=== PATIENT | female | born 1965 | race Caucasian/White ===

== ENCOUNTER → 2018-04-15 07:33 | Outpatient (CLI) | payer OTHER, SELFPAY ==
[2018-03-29 08:43] VITALS: BMI 26.9
--- NOTE | 2018-04-15 07:39 | ECHOD_ITS ---
Version 2 Reason For Study: MURMUR Procedure This was a 2D Doppler, Color Flow transthoracic echocardiogram. The exam was of adequate technical quality. Exam performed in department. Left Ventricle Normal LV size. Left ventricular systolic function is normal. The estimated ejection fraction is 60 %. Transmitral doppler flow suggestive of impaired relaxation of left ventricle. No regional wall motion abnormalities noted. Right Ventricle Normal RV size. Normal systolic function. Atria Normal left atrium. Normal right atrium. No doppler evidence for ASD. Mitral Valve There is no mitral annular calcification. Normal mitral valve. Trivial mitral valve insufficiency. Tricuspid Valve Normal tricuspid valve. Mild tricuspid valve insufficiency. Right ventricular systolic pressure estimated to be 17 mmHg. Aortic Valve Trisinus/trileaflet aortic valve. Mild diffuse aortic valve thickening. Moderate focal aortic valve calcification. Mild (1+) aortic valve insufficiency. Pulmonic Valve The pulmonic valve is not well visualized. Mild (1+) pulmonic valve insufficiency. Great Vessels Normal sized aortic root. Pericardium/Pleural No pericardial effusion. MMode/2D Measurements & Calculations LVIDd: 4.4 cm IVSd: 0.87 cm LVOT diam: 2.3 cm LVIDs: 3.0 cm LVPWd: 0.99 cm LVOT area: 4.1 cm2 RVDd: 2.9 cm FS: 31.6 % Ao root diam: 3.5 cm LAV(MOD-bp): 40.3 ml LA A4 area: 14.7 cm2 LAV(MOD-bp) Indexed: 23.5 ml/m2 LAV(MOD-sp2): 41.0 ml LAV(MOD-sp4): 39.5 ml LA dimension(2D): 3.2 cm RA A4 area: 11.7 cm2 Doppler Measurements & Calculations MV E max [place]go: 52.5 cm/sec Lat Peak E' Diego: 5.9 cm/sec Med Peak E' Diego: 7.7 cm/sec MV A max [place]go: 71.7 cm/sec E/E' lat: 9.0 E/E' med: 6.9 MV E/A: 0.73 Ao V2 max: 171.4 cm/sec AI max diego: 344.0 cm/sec LV V1 max: 100.5 cm/sec Ao max P.7 mmHg AI max P.4 mmHg LV V1 max P.0 mmHg Ao V2 mean: 124.7 cm/sec AI dec slope: 227.7 cm/sec2 LV V1 mean P.2 mmHg Ao mean P.7 mmHg AI P1/2t: 442.5 msec LV V1 mean: 68.9 cm/sec Ao V2 VTI: 34.4 cm LV V1 VTI: 21.4 cm SAMUEL(I,D): 2.6 cm2 SAMUEL(V,D): 2.4 cm2 SV(LVOT): 88.0 ml PA V2 max: 86.5 cm/sec TR max diego: 185.3 cm/sec TR max P.7 mmHg Interpretation Summary Left ventricular systolic function is normal. The estimated ejection fraction is 60 %. Trivial mitral valve insufficiency. Mild tricuspid valve insufficiency. Mild (1+) aortic valve insufficiency. Mild (1+) pulmonic valve insufficiency. Right ventricular systolic pressure estimated to be 17 mmHg. Transmitral doppler flow suggestive of impaired relaxation of left ventricle Comment: 2D echocardiographic images in the short axis view of the aortic valve apparatus appear potentially compatible with a tricuspid aortic valve with a fusion/calcified raphe functioning as a bicuspid aortic valve no spectral Doppler findings compatible with hemodynamically significant aortic valve stenosis and color flow and Doppler findings compatible with mild aortic valve insufficiency. Ordering Physician: Tomás^Devan^^^ Referring Physician: Camila Baeza Performed By: Annika Linda, NORY, RVT
== END ==
PROVIDERS: Family Provider Internal Medicine; PCP Internal Medicine; Referring Provider Internal Medicine Cardiovascular Disease; Visit Provider Internal Medicine Cardiovascular Disease
DX: I35.9 Nonrheumatic aortic valve disorder, unspecified (principal)
CPT/HCPCS: 93306

== ENCOUNTER 2018-09-19 11:06 | Emergency (ER) | payer OTHER, SELFPAY ==
[2018-03-29 08:43] VITALS: BMI 26.9
[2018-09-19 11:07] VITALS: BP 191/82; PULSE 76; RESP 16; TEMP 35.9; BMI 26.6
--- NOTE | 2018-09-19 11:40 | RAD_ITS ---
STUDY: X-RAY - LUMBAR SPINE REASON FOR EXAM: Female, 53 years old. Sudden onset of severe back pain TECHNIQUE: 3 view(s) of the lumbar spine were obtained. COMPARISON: None FINDINGS: Normal lumbar lordosis. There is a dextroscoliosis of the lumbar spine. There is grade 2 spondylolisthesis at L5-S1 likely due to L5 spondylolysis. Mild spondylosis and endplate sclerosis at T12-L1 as well as L3-L4. Mild disc space narrowing at L3-L4. There is no demonstrated fracture. The soft tissue structures are unremarkable. RAD/Lumbar Spine 2 or 3 Views IMPRESSION: 1. No compression fracture. 2. Grade 2 spondylolisthesis of L5-S1 likely due to L5 spondylolysis. 3. Mild degenerative disc disease L3-L4. Electronically Signed: Dmitry Mcdermott MD at 12:18 EDT , Service support ,
--- NOTE | 2018-09-19 11:41 | ED.DCSUM_ITS ---
History of Present Illness Chief Complaint: Back Informant: Patient, Family Onset: Yesterday Current Severity: Mild Narrative: Patient indicates about yesterday she put her right leg up to put some skin lotion on her leg when she did so she getting [place] and immediate pain to her right paralumbar back musculature. The pain has persisted, she denies numbness weakness paresthesias no bowel or bladder complaint, she has a history of cervical disc disease but no history of low lumbar back disease or complaints or issues no trauma she is able to walk has but has pain with ambulation she denies any other complaints and there was no direct trauma just rather putting her leg up as above Past Medical History - Allergies and Home Meds Allergies/Adverse Reactions: Allergies No Known Allergies Allergy (Verified 09/19/18 11:09) Primary Care Physician: Camila Baeza MD [Primary Care Provider] - Past Medical History: - - See above in the full chart Surgical History: - - Endometrial ablation Smoking Status: Never smoker - Family History Maternal Family History: Family History (Last Reviewed 03/29/18 @ 08:44 by Karina Maya) Mother Heart disease Hypertension Father Heart disease Diabetes Brother Heart disease Myocardial infarction, Onset Age: 58 Family History: Reports: Heart Disease, - - Her mother has had 2 bypass surgeries and is still alive. There is no history of ovarian or breast cancer on the maternal side of the family. Paternal Family History: Family History (Last Reviewed 03/29/18 @ 08:44 by Karina Maya) Mother Heart disease Hypertension Father Heart disease Diabetes Brother Heart disease Myocardial infarction, Onset Age: 58 Family History: Reports: Diabetes - In her father Sibling Family History: Family History (Last Reviewed 03/29/18 @ 08:44 by Karina Maya) Mother Heart disease Hypertension Father Heart disease Diabetes Brother Heart disease Myocardial infarction, Onset Age: 58 Family History: Reports: - - Her brother in his 50s of a massive myocardial infarction Review of Systems General: Denies: Chills, Fever, Sweats Eyes: Denies: Visual changes - bilaterally, Diplopia ENT: Denies: Rhinorrhea, Sore throat Cardiovascular: Denies: Chest pain, Palpitations Respiratory: Denies: Dyspnea, Cough, Dyspnea on exertion Gastrointestinal: Denies: Abdominal pain, Nausea, Vomiting, Diarrhea, Melena, Hematochezia Genitourinary: Denies: Dysuria, Hematuria, Frequency Musculoskeletal: Reports: Back pain. Denies: Extremity Pain Skin: Denies: Rash, Wounds Neurological: Denies: Headache, Weakness, Numbness Physical Exam Vital Signs/Narrative: Vital Signs Temp Pulse Resp BP 09/19/18 11:07 96.6 F L 76 16 191/82 H General: Well nourished, Well developed, No Acute Distress Head: Normocephalic, Atraumatic Eyes: Perrl, EOMI ENT: Moist mucous membranes, No rhinorrhea Neck: Supple, Nontender Cardiovascular: Regular rate, Regular rhythm, No murmurs Respiratory: No distress, CTA bilaterally, Chest nontender Abdomen: Soft, Nontender, Nondistended, Normal bowel sounds Back: Nontender, Normal Inspection, - - He has some discomfort to the right paralumbar back musculature. The T-spine lumbar spine are not tender, her full range of motion of lower extremities dorsi and plantarflexion is normal, she walked in the emergency department under her own gait, she again denies any other complaints no urinary symptoms no abdominal pain Extremities: Nontender, No edema Skin: Normal color, No rash Neurological: Alert, Oriented x3, Cranial nerves II-XII grossly intact, Normal Strength, Normal Sensation Psychological: Normal affect, Normal Mood Diagnostic/Tx/Re-eval - Medical Decision Making Given all of the above lumbar spine x-ray morphine subcu Zofran Lumbar spine films are generally unremarkable please see that report, explained all the above to her and her this time she will be treated with Naprosyn and Flexeril [place] as a rescue medicine #7 she will follow with her family physician for further management otherwise explained the exact etiology of this is unclear and it could be something that requires further management and possible referral to spine surgery she will return for any signs of cauda equina or change in symptoms Home stable Final impression Acute right paralumbar back pain ED Disposition - Plan for ED Patient: Diagnosis: Lumbar back pain Instructions: BACK SPASM, No Trauma Prescriptions: cycloBENZAPRine HCl [Flexeril] 10 mg PO TID PRN #10 tab PRN Reason: Muscle Spasm Prescription Printed Naproxen [Naprosyn] 500 mg PO BID PRN #20 tab Prescription Printed Hydrocodone Bitart/Apap 5-325 [[place] 5MG-325MG] 1 tab PO Q4H PRN PRN 2 Days #10 tab PRN Reason: Pain Prescription Printed Referrals: Camila Baeza MD [Primary Care Provider] -
[2018-09-19] MEDS: morphine 8 MG/ML Syringe SC (12:10)
[2018-09-19] MEDS: Ondansetron ODT 4 MG Tablet PO (12:10)
[2018-09-19 12:51] VITALS: BP 167/87; PULSE 76; RESP 18; O2SAT 95
== END 2018-09-19 12:52 | disposition home or self-care (01) ==
LOC: ED 11:49
PROVIDERS: Emergency Provider Emergency Medicine; Family Provider Internal Medicine; PCP Internal Medicine
DX: M54.5 Low back pain (principal)
CPT/HCPCS: 72100; 96372; 99283

== ENCOUNTER → 2019-05-10 | Outpatient (CLI) | payer OTHER, SELFPAY ==
[2019-04-22 08:56] VITALS: BMI 28.2
--- NOTE | 2019-05-10 14:50 | ECHOD_ITS ---
Reason For Study: MURMUR Procedure This was a 2D Doppler, Color Flow transthoracic echocardiogram. The exam was of adequate technical quality. Exam performed in department. Left Ventricle Normal LV size. Left ventricular systolic function is normal. The estimated ejection fraction is 60 %. Diastolic function is indeterminate. No regional wall motion abnormalities noted. Right Ventricle Normal RV size. Normal systolic function. Atria Normal left atrium. Normal right atrium. No doppler evidence for ASD. Mitral Valve There is no mitral annular calcification. Normal mitral valve. Trivial mitral valve insufficiency. Tricuspid Valve Normal tricuspid valve. Mild tricuspid valve insufficiency. Right ventricular systolic pressure estimated to be 22 mmHg. Aortic Valve 2D echocardiographic images in the short axis view of the aortic valve apparatus appear potentially compatible with a tricuspid aortic valve with a fusion/calcified raphe functioning as a bicuspid aortic valve no spectral Doppler findings compatible with hemodynamically significant aortic valve stenosis and color flow and Doppler findings compatible with mild aortic valve insufficiency. Mild (1+) aortic valve insufficiency. Pulmonic Valve The pulmonic valve is not well visualized. Trivial pulmonic valve insufficiency. Great Vessels Borderline enlarged aortic root. Pericardium/Pleural No pericardial effusion. MMode/2D Measurements & Calculations LVIDd: 3.9 cm IVSd: 1.0 cm Ao root diam: 3.9 cm LVIDs: 2.7 cm LVPWd: 1.1 cm RVDd: 3.2 cm FS: 31.1 % LAV(MOD-bp): 37.0 ml LVAd ap4: 31.0 cm2 SV(MOD-sp4): 62.2 ml LAV(MOD-bp) Indexed: 21.0 ml/m2 EDV(MOD-sp4): 109.3 ml LAV(MOD-sp2): 44.4 ml EDV(sp4-el): 113.3 ml LAV(MOD-sp4): 30.6 ml LVAs ap4: 19.2 cm2 ESV(MOD-sp4): 47.1 ml ESV(sp4-el): 47.4 ml EF(MOD-sp4): 56.9 % EF(sp4-el): 58.2 % SV(sp4-el): 65.9 ml LA A4 area: 13.4 cm2 LA dimension(2D): 3.2 cm RA A4 area: 13.3 cm2 Time Measurements MV dec time: 0.32 sec Doppler Measurements & Calculations MV E max [place]: 65.7 cm/sec Lat Peak E' Diego: 6.3 cm/sec Med Peak E' Diego: 5.0 cm/sec MV A max [place]: 82.0 cm/sec E/E' lat: 10.5 E/E' med: 13.2 MV E/A: 0.80 Ao V2 max: 185.2 cm/sec AI max [place]: 419.0 cm/sec LV V1 max: 127.6 cm/sec Ao max P.7 mmHg AI max P.2 mmHg LV V1 max P.5 mmHg AI dec slope: 241.2 cm/sec2 AI P1/2t: 508.7 msec PA V2 max: 70.4 cm/sec TR max [place]go: 217.1 cm/sec TR max P.9 mmHg Interpretation Summary Left ventricular systolic function is normal. The estimated ejection fraction is 60 %. Trivial mitral valve insufficiency. Mild tricuspid valve insufficiency. 2D echocardiographic images in the short axis view of the aortic valve apparatus appear potentially compatible with a tricuspid aortic valve with a fusion/calcified raphe functioning as a bicuspid aortic valve no spectral Doppler findings compatible with hemodynamically significant aortic valve stenosis and color flow and Doppler findings compatible with mild aortic valve insufficiency Trivial pulmonic valve insufficiency. Borderline enlarged aortic root. Right ventricular systolic pressure estimated to be 22 mmHg. Diastolic function is indeterminate. Ordering Physician: Devan England Referring Physician: DANIELA ULLOA Performed By: Marycruz Cross, RDCS, RVT
== END | disposition home or self-care (01) ==
LOC: CVS 14:50
PROVIDERS: PCP Internal Medicine; Referring Provider Internal Medicine Cardiovascular Disease; Visit Provider Internal Medicine Cardiovascular Disease
DX: I35.9 Nonrheumatic aortic valve disorder, unspecified (principal); R01.1 Cardiac murmur, unspecified
CPT/HCPCS: 93306

== ENCOUNTER → 2021-07-12 | Outpatient (CLI) | payer OTHER, SELFPAY ==
--- NOTE | 2021-07-12 10:46 | ECHOD_ITS ---
Reason For Study: Murmur Procedure This was a 2D Doppler, Color Flow transthoracic echocardiogram. The study was technically difficult. Exam performed in department. Left Ventricle Normal LV size. Left ventricular systolic function is normal. The estimated ejection fraction is 65 %. No evidence for diastolic dysfunction. Right Ventricle Normal RV size. Normal systolic function. Atria Normal left atrium. Normal right atrium. No doppler evidence for ASD. Mitral Valve There is no mitral annular calcification. Normal mitral valve. Trivial mitral valve insufficiency. Tricuspid Valve Normal tricuspid valve. Trivial tricuspid valve insufficiency. Right ventricular systolic pressure estimated to be 25 mmHg. Aortic Valve 2D echocardiographic images in the short axis view of the aortic valve apparatus appear potentially compatible with a tricuspid aortic valve with a fusion/calcified raphe functioning as a bicuspid aortic valve no spectral Doppler findings compatible with hemodynamically significant aortic valve stenosis and color flow and Doppler findings compatible with mild aortic valve insufficiency. Pulmonic Valve The pulmonic valve is not well visualized. Trivial pulmonic valve insufficiency. Great Vessels Borderline enlarged aortic root. Pericardium/Pleural No pericardial effusion. MMode/2D Measurements & Calculations LVIDd: 4.4 cm IVSd: 1.2 cm LVOT diam: 2.1 cm LVIDs: 2.8 cm LVPWd: 1.3 cm LVOT area: 3.6 cm2 RVDd: 3.0 cm FS: 37.3 % Ao root diam: 3.7 cm LAV(MOD-bp): 36.1 ml LA A4 area: 15.7 cm2 LA dimension: 3.0 cm LAV(MOD-bp) Indexed: 20.5 ml/m2 LAV(MOD-sp2): 31.0 ml LAV(MOD-sp4): 40.4 ml RA A4 area: 13.9 cm2 Time Measurements MV dec time: 0.31 sec Doppler Measurements & Calculations MV E max [place]: 70.9 cm/sec Lat Peak E' Diego: 8.3 cm/sec Med Peak E' [place]: 8.7 cm/sec MV A max [place]: 63.6 cm/sec E/E' lat: 8.6 E/E' med: 8.1 MV E/A: 1.1 Ao V2 max: 175.0 cm/sec AI max [place]go: 385.0 cm/sec LV V1 max: 126.5 cm/sec Ao max P.2 mmHg AI max P.3 mmHg LV V1 max P.4 mmHg Ao V2 mean: 112.9 cm/sec AI dec slope: 146.5 cm/sec2 LV V1 mean P.0 mmHg Ao mean P.8 mmHg AI P1/2t: 770.0 msec LV V1 mean: 80.6 cm/sec Ao V2 VTI: 37.7 cm LV V1 VTI: 29.5 cm SAMUEL(I,D): 2.8 cm2 SAMUEL(V,D): 2.6 cm2 SV(LVOT): 106.9 ml PA V2 max: 55.6 cm/sec TR max [place]go: 233.4 cm/sec TR max P.8 mmHg ECHO/Echo Complete Interpretation Summary The study was technically difficult. Left ventricular systolic function is normal. The estimated ejection fraction is 65 %. Trivial mitral valve insufficiency. Trivial tricuspid valve insufficiency. 2D echocardiographic images in the short axis view of the aortic valve apparatu s appear potentially compatible with a tricuspid aortic valve with a fusion/calcified raphe function ing as a bicuspid aortic valve no spectral Doppler findings compatible with hemodynamically signi ficant aortic valve stenosis and color flow and Doppler findings compatible with mild aortic valve insufficiency Trivial pulmonic valve insufficiency. Borderline enlarged aortic root. Right ventricular systolic pressure estimated to be 25 mmHg. No evidence for diastolic dysfunction. Ordering Physician: Karina Melendez Referring Physician: Camila Baeza M.D. Performed By: Chas Benton RCS
== END | disposition home or self-care (01) ==
LOC: CVS 10:45
PROVIDERS: PCP Internal Medicine; Referring Provider Physician Assistant Medical; Visit Provider Physician Assistant Medical
DX: I35.1 Nonrheumatic aortic (valve) insufficiency (principal); R01.1 Cardiac murmur, unspecified
CPT/HCPCS: 93306

== ENCOUNTER 2021-10-29 09:16 | Emergency (ER) | payer OTHER, SELFPAY ==
[2021-10-29 09:17] VITALS: BP 191/127; PULSE 95; RESP 17; TEMP 35.9; O2SAT 99; BMI 29.4
--- NOTE | 2021-10-29 09:53 | CT_ITS ---
INDICATION: Abdominal Pain X 1 WEEK EXAMINATION: CT ABDOMEN AND PELVIS WITH CONTRAST - CT Abdomen And Pelvis W/ Contrast Injection TECHNIQUE: Helically acquired images were obtained of the abdomen and pelvis following IV contrast. A radiation dose optimization technique was used for this scan. IV Contrast dosage and agent: 100 mL of ISOVUE-300 Oral contrast: None. COMPARISON: 08/03/2015.. FINDINGS: LOWER CHEST: Lung bases are clear. No cardiomegaly or pericardial effusion. LIVER: Homogeneous. No focal mass. GALLBLADDER AND BILIARY TREE: No calcified gallstones. No gallbladder distension or wall edema. No intra- or extrahepatic biliary ductal dilation. PANCREAS: No focal cystic or solid mass. SPLEEN: Normal size without focal cystic or solid mass. ADRENAL GLANDS: No nodules. KIDNEYS AND URETERS: Normal renal size and position. No hydronephrosis. PERITONEUM: No ascites or free air. No other fluid collection. BOWEL: Extensive bowel wall thickening visualized in the distal rectosigmoid with extensive stranding of the adjacent fat planes is seen, best visualized on axial series 2 image 85, coronal series 601 image 57 and sagittal series 602 image 91 no evidence of free air in the peritoneal cavity, no evidence of localized abscess is visualized. Findings consistent with acute diverticulitis Thickening of the proximal sigmoid colon and the descending colon is visualized with scattered diverticular disease but no evidence of other areas of for acute diverticulitis is visualized. Distended loops of small bowel visualized in the right lower quadrant and in the midabdomen, the most prominent visualized in the proximity of the diverticulitis of the sigmoid colon, thus this could represent ileus secondary to irritation/inflammatory changes in the peritoneum at this location. Type I hiatus hernia is seen. LYMPH NODES: Extensive scattered mesenteric and retroperitoneal lymph nodes are seen. VESSELS: Aorta is non-dilated. URINARY BLADDER: Unremarkable. REPRODUCTIVE ORGANS: Anteverted uterus demonstrates low attenuation within the myometrium. Stranding of the adjacent fat planes is seen. Scattered adjacent pelvic lymph nodes seen. ABDOMINAL WALL: No discrete abdominal or pelvic wall hernia. BONES: No lytic or blastic abnormality. CT/Abdomen/Pelvis W IV Cont ONLY IMPRESSION: Acute diverticulitis of the sigmoid colon. Distended loops of small bowel in the right lower quadrant and in the midabdomen with extensive mesenteric lymphadenopathy, this could be secondary to the acute diverticulitis. Electronically Signed: Rodolfo Eugene MD at 11:49 EDT ,
--- NOTE | 2021-10-29 09:54 | EDS_ITS ---
HPI HPI - GI History of Present Illness Chief Complaint: Abd Pain Narrative Narrative: Patient with past medical history of anxiety and depression, hypertension, presents with diarrhea and suprapubic to right lower quadrant abdominal pain for the last week. She states her symptoms began on Thursday of last week when she picked up her grandson. She thought she pulled a muscle in her lower abdomen in the suprapubic area. Seem to get worse the following day, then she developed diarrhea over the weekend. She has had multiple episodes of mucousy, watery stool. She denies any fevers and had transient nausea and chills. No vomiting. She denies any dysuria or hematuria. At times it is a crampy pain, and other times it can be sharp and stabbing. It is mainly in the right lower quadrant currently. She is had 3-4 episodes of diarrhea in the last 24 hours. No prior abdominal surgeries. She complains of anxiety regarding this. She has been able to take her medications. [facility] Medical History Anxiety and depression Chest pain DDD (degenerative disc disease) VENTURA (dyspnea on exertion) Essential hypertension Family history of heart disease Nonrheumatic aortic (valve) insufficiency Nonrheumatic aortic (valve) insufficiency Nonrheumatic aortic valve disorder Umu-menopausal Home Medications multivitamin 1 tab PO QDAY 03/24/17 [History Last Taken Unknown] hydrochlorothiazide 25 mg tablet 25 mg PO DAILY 03/29/18 [History Last Taken Unknown] atenolol 25 mg tablet 25 mg PO DAILY 06/27/21 [History Last Taken Unknown] ciprofloxacin HCl 500 mg tablet (Cipro) 500 mg PO BID #20 tabs 10/29/21 [Rx Last Taken Unknown] hydrocodone-acetaminophen 5-325mg 5mg-325mg 1 tab PO Q6H PRN pain 3 days #10 tabs 10/29/21 [Rx Last Taken Unknown] metronidazole 500 mg tablet 500 mg PO TID #30 tabs 10/29/21 [Rx Last Taken Unknown] Allergy/AdvReac Type Severity Reaction Status Date / Time No Known Allergies Allergy Verified 10/29/21 09:17 Family History Mother Heart disease Hypertension Father Heart disease Diabetes Brother Heart disease Myocardial infarction, Onset Age: 58 Surgical History Hx of foot surgery uterine ablation Social History Smoking Status: Never smoker alcohol intake: current substance use type: does not use ROS ROS ED ROS Narrative Constitutional: No fever, no chills. HEENT: No sore throat. No neck pain. No loss of vision. No rhinorrhea. Cardiovascular: No chest pain. No palpitations. No pedal edema. Respiratory: No cough, no shortness of breath. Abdominal: Suprapubic to right lower quadrant abdominal pain. Transient nausea. No vomiting. Positive diarrhea, nonbloody Genitourinary: No dysuria. No hematuria. Musculoskeletal: No myalgias. No arthralgias. Neurologic: No headaches. No dizziness. Minimal lightheadedness when standing quickly. Skin: No rash. No change in color. Psychiatric: No depression. Positive anxiety. EXAM Physical Exam Narrative Exam Narrative: Afebrile. Vital signs noted. HEENT: Normocephalic. Atraumatic. PERRL, EOMI. Neck soft and supple. No point tenderness or step off. Cardiovascular: Regular rate and rhythm. No murmurs, rubs, or gallops appreciated. Respiratory: No tachypnea. Lungs clear to auscultation bilaterally. Gastrointestinal: Abdomen soft, tender to palpation right lower quadrant, with normoactive bowel sounds. No rebound or guarding. Neurological: Awake. Alert. Nonfocal, nonlateralizing. Skin: No rash. Normal color. No pallor. Musculoskeletal: No pedal edema. Full range of motion extremities. Const Vital Signs: 10/29/21 09:17 10/29/21 11:00 Temperature 96.7 F L Temperature Source Temporal Pulse Rate 95 74 Respiratory Rate 17 16 Blood Pressure 191/127 H 153/75 H Blood Pressure Mean 148 101 Pulse Ox 99 97 Oxygen Delivery Method Room Air Room Air MDM MDM MDM Narrative Medical decision making narrative: Comprehensive work-up was pursued. She was administered morphine for analgesia and bolus normal saline. She does have elevated blood pressure which I do think may be secondary to anxiety. Concern is for colitis/diverticulitis versus appendicitis. CBC shows normal white count at 9.4, hemoglobin stable at 14.4, platelet count 270. Her electrolyte panel shows potassium low at 3.0 which was replaced orally with 40 mill equivalents. She has normal BUN and normal creatinine. LFTs are slightly elevated at 55 and 66 with her AST and ALT respectively. Lipase normal at 217. Urinalysis shows no evidence of infection. CT of the abdomen and pelvis with IV contrast does show acute diverticulitis mainly of the rectosigmoid colon and partially of the descending colon. Upon repeat examination she feels improved after morphine. Her abdomen remains soft. As she is afebrile and does not have an elevated white count, I do feel that she could try outpatient therapy. She was warned of the risk of abscess development and perforation and acknowledges an understanding. She will follow- up with her primary care physician in the next 2 to 3 days. She was given a note to be off work. She was given prescriptions for Cipro and Flagyl and given her first doses here in the emergency department. I also wrote her prescription for [place]. She was told of the risk of constipation, drowsiness, nausea and vomiting, and addiction and acknowledges an understanding. Return instructions to the emergency department were reviewed. Disposition is discharged home in stable condition. Lab Data Attestation: I reviewed the patient's lab results. Labs: Laboratory Results - last 24 hr 10/29/21 10/29/21 10/29/21 10:05 10:25 10:25 WBC 9.4 RBC 4.40 Hgb 14.4 Hct 41.4 MCV 94.1 MCH 32.7 H MCHC 34.8 RDW Std Deviation 44.2 H RDW Coeff of Bright 12.9 Plt Count 270 MPV 10.2 Immature Gran % (Auto) 0.600 Neut % (Auto) 77.5 H Lymph % (Auto) 15.2 L Lewis % (Auto) 4.9 Eos % (Auto) 1.3 Baso % (Auto) 0.5 Absolute Neuts (auto) 7.3 Absolute Lymphs (auto) 1.43 Nucleated RBC % 0 Sodium 137 Potassium 3.0 L Chloride 102 Carbon Dioxide 25.0 Anion Gap 10 BUN 16 Creatinine 0.93 Estim Creat Clear Calc 55.21 Est GFR (MDRD) Af Amer 80 Est GFR (MDRD) Non-Af 66 BUN/Creatinine Ratio 17.2 Glucose 142 H Calcium 9.5 Total Bilirubin 0.60 AST 55 H ALT 66 H Alkaline Phosphatase 242 H Total Protein 7.4 Albumin 3.1 L Globulin 4.3 H Albumin/Globulin Ratio 0.7 L Lipase 217 Urine Color Yellow Urine Clarity Sl. Cloudy Urine pH 6.5 Ur Specific [place] 1.010 Urine Protein 30 H Urine Glucose (UA) Normal Urine Ketones Negative Urine Occult Blood 10 H Urine Nitrite Negative Urine Bilirubin Negative Urine Urobilinogen 1 H Ur Leukocyte Esterase 25 H Urine RBC 0 SEEN Urine WBC 0-5 SEEN Ur Squamous Epith Cells 0-5 SEEN Urine Bacteria 0 SEEN Urine Mucus 0 SEEN Radiography Diagnostic Testing: Clinical Impression(s) from Imaging Studies Abdomen/Pelvis CT 10/29/21 09:53 IMPRESSION: Acute diverticulitis of the sigmoid colon. Distended loops of small bowel in the right lower quadrant and in the midabdomen with extensive mesenteric lymphadenopathy, this could be secondary to the acute diverticulitis. Electronically Signed: Rodolfo Eugene MD at 11:49 EDT Reading Location ID and State: [facility] / [place] Tel , Service support , Discharge Plan Triage Chief Complaint: Abd Pain ED Provider: Luis Villanueva Dx/Rx/DC Orders Clinical Impression: Anxiety and depression, Diverticulitis, Hypokalemia Instructions: ED Diverticulitis, ED Hypokalemia Prescriptions: New ciprofloxacin HCl [Cipro] 500 mg tablet 500 mg PO BID Qty: 20 0RF metronidazole 500 mg tablet 500 mg PO TID Qty: 30 0RF hydrocodone-acetaminophen 5-325 mg tablet 1 tab PO Q6H PRN (Reason: pain) 3 Days Qty: 10 0RF No Action multivitamin tablet 1 tab PO QDAY hydrochlorothiazide 25 mg tablet 25 mg PO DAILY atenolol 25 mg tablet 25 mg PO DAILY Stand Alone Forms: ED Work / School Excuse Primary Care Provider: Camila Baeza Referrals: Camila Baeza MD [Primary Care Provider] - 10/31/21 Disposition Disposition: Home, Self Care
[2021-10-29 10:15] LABS: Bacteria 0 SEEN /hpf (None Seen); Mucous, Urine 0 SEEN /hpf (<or=2+); Red Blood Cells-Urine 0 SEEN /hpf (0-5)
[2021-10-29 10:19] LABS: Color, Urine Yellow (Yellow); Glucose, Dipstick Normal (Normal); Ketone-Dipstick Negative (Negative); Leukocyte Esterase-Dipstick 25 /ul (Negative); Nitrite-Dipstick Negative (Negative); Occult Blood-Urine 10 /ul (Negative); Protein-Dipstick 30 mg/dl (Negative); Urine Bilirubin Dipstick Negative (Negative); Urine Clarity Sl. Cloudy (Clear); Urine Urobilinogen 1 mg/dl (Normal); Urine pH 6.5 (5.0 - 8.0)
[2021-10-29 10:29] LABS: Squamous Epithelial Cells - UA 0-5 SEEN /hpf (5-10); White Blood Cells 0-5 SEEN /hpf (0-5)
[2021-10-29 10:30] LABS: Absolute Lymphocyte Count 1.43 X10^3/uL (0.83-4.51); Absolute Neutrophil Count 7.3 X10^3/uL (2.0-7.7); Basophil# 0.05 X10^3/uL; Basophil% 0.5 % (0-1); Eosinophil# 0.12 X10^3/uL; Eosinophils% 1.3 % (0-5); Hematocrit 41.4 % (37-47); Hemoglobin 14.4 g/dL (12.0-15.0); Lymphocyte # 1.43 X10^3/ul (0.83-4.51); Lymphocyte % 15.2 % (19-41); Mean Corp Hgb Conc 34.8 g/dL (32-36); Mean Corpuscular Hgb 32.7 pg (27.0-32.0); Mean Corpuscular Volume 94.1 fL (81-99); Mean Platelet Vol. 10.2 fl (6.2-12.0); Monocyte# 0.46 X10^3/uL; Monocyte% 4.9 % (0-10); NRBC Flagged by Analyzer 0 % (0-5); Neutrophil # 7.27 X10^3/uL (2.7-7.7); Neutrophil % 77.5 % (47-70); Platelet Count 270 K/mm3 (150-450); RBC Distribution Width CV 12.9 % (11.6-14.6); RBC Distribution Width SD 44.2 fl (35.1-43.9); White Blood Count 9.4 K/mm3 (4.4-11.0)
[2021-10-29 10:49] LABS: ALB/GLOB Ratio 0.7 RATIO (0.9-2.4); AST(SGOT) 55 U/L (15-37); Alanine Aminotransfer ALT/SGPT 66 U/L (13-56); Albumin, Serum 3.1 g/dL (3.2-5.0); Alkaline Phosphatase 242 U/L (45-117); BUN 16 mg/dL (7-18); BUN/Creat Ratio 17.2 RATIO (10-20); Calcium,Total 9.5 mg/dL (8.5-10.1); Chloride 102 mmol/L (98-107); Creatinine, Serum 0.93 mg/dL (0.55-1.02); EST Glomerular Filtration Rate 66 mL/min (>60); Est Glom Filt Rate - Afr Amer 80 mL/min (>60); Estimated Creatinine Clearance 55.21 ml/min; Globulin 4.3 g/dL (2.2-4.2); Glucose 142 mg/dL (74-106); Lipase 217 U/L (73-393); Protein, Total 7.4 g/dL (6.4-8.2); Sodium Level 137 mmol/L (136-145)
[2021-10-29 10:50] LABS: Anion Gap 10 (5-15)
[2021-10-29] MEDS: 0.9% Normal Saline 1,000 ML 1000 ML IV (10:51)
[2021-10-29] MEDS: Morphine 4 MG/ML Syringe IV (10:54)
[2021-10-29 11:00] VITALS: BP 153/75; PULSE 74; RESP 16; O2SAT 97
[2021-10-29] MEDS: Potassium Chloride Oral Tablet 20 MEQ 40 MEQ PO (12:16)
[2021-10-29] MEDS: metroNIDAZOLE 500 MG Tablet PO (12:52)
[2021-10-29] MEDS: Ciprofloxacin 500 MG Tablet PO (12:52)
== END 2021-10-29 13:28 | disposition home or self-care (01) ==
PROVIDERS: Emergency Provider Emergency Medicine; PCP Internal Medicine; Visit Provider Emergency Medicine
DX: K57.32 Diverticulitis of large intestine without perforation or abscess without bleeding (principal); F32.A Depression, unspecified; R10.31 Right lower quadrant pain; I10 Essential (primary) hypertension; F41.9 Anxiety disorder, unspecified; E87.6 Hypokalemia; Z79.899 Other long term (current) drug therapy
CPT/HCPCS: 74177; 80053; 81001; 83690; 85025; 96361; 96374; 99285; J7030; Q9967; A4216

== ENCOUNTER → 2022-01-31 | Outpatient (CLI) | payer OTHER, SELFPAY ==
--- NOTE | 2022-01-31 13:48 | CT_ITS ---
STUDY: CT ABDOMEN AND PELVIS WITH CONTRAST REASON FOR EXAM: Female, 56 years old. Diverticulitis RADIATION DOSAGE (If Supplied By Facility): CTDIvol = ( 15.92 ) mGy, DLP = ( 921.65 ) mGycm TECHNIQUE: Transaxial images were obtained from the dome of the diaphragm to the symphysis pubis without oral contrast. IV 100mL Isovue-300 was administered. Sagittal and coronal images were reconstructed. Individualized dose optimization techniques were used for this CT. COMPARISON: Comparison is made with prior study dated 10/29/2021. FINDINGS: The visualized lung bases are unremarkable. The visualized portions of the heart are within normal limits. There is decreased attenuation of the liver consistent with steatosis. Normal gallbladder and extrahepatic biliary system. Normal spleen. Normal pancreas. Normal bilateral adrenal glands. Normal right kidney. Stable small left renal cyst. Normal visualized stomach. Normal small intestine. Large amount of fecal material is seen in the colon. Scattered sigmoid diverticula with no evidence of diverticulitis at this time. The appendix is visualized and appears normal. Normal abdominal aorta. Normal inferior vena cava. Normal retroperitoneum. Normal urinary bladder. Normal abdominal wall. 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 CT/Abdomen/Pelvis WITH Contrast IMPRESSION: Sigmoid diverticulosis without evidence of diverticulitis. Electronically Signed: Brian Rendon MD at 14:41 EST ,
[2022-01-31 14:21] LABS: CREATININE FINGERSTICK < 0.9 mg/dL (0.55-1.02); EGFR FINGERSTICK > 60.0000 mL/min (>60)
== END | disposition home or self-care (01) ==
LOC: CT 13:45
PROVIDERS: PCP Internal Medicine; Referring Provider Internal Medicine Gastroenterology; Visit Provider Internal Medicine Gastroenterology
DX: K57.92 Diverticulitis of intestine, part unspecified, without perforation or abscess without bleeding (principal)
CPT/HCPCS: 74177; Q9967

== ENCOUNTER 2022-03-11 12:38 | Day surgery (SDC) | payer OTHER, SELFPAY ==
[2022-03-11] VITALS (8 sets, daily range): BP systolic 115–145; BP diastolic 70–87; PULSE 63–84; RESP 16–18; TEMP 36.1–36.6; O2SAT 96–100; BMI 28.4
[2022-03-11] MEDS: Lactated Ringers 1,000 ML 15 ML IV (12:55)
--- NOTE | 2022-03-11 13:45 | COLBX_PTH ---
PATIENT: CARRIE OGLESBY LOC: EN U#:[id number] AGE/SX: 56/F ROOM: RE03/11/[address]: Dr. Eleno Bedolla DO : 1965 BED: DIS: 03/11/2022 SPEC #: [id number] RECD: 03/11/22 16:18 STATUS: RUY MY #: [id number] ELIF: 03/11/22 13:[address]: Eleno Bedolla DEPT: SURGICAL PATHOLOGY RECD BY: Jenni Galan ENTERED: 03/12/22 08:14 SP TYPE: COLON BX OT DR: Dr. Camila Baeza MD Tissues: A - Sigmoid colon biopsy B - Sigmoid colon biopsy C - Sigmoid colon biopsy Procedures: Surgery Specimen Level IV HEADER OPERATION: Colonoscopy (MAC), biopsy, polypectomy PRE-OP DIAGNOSIS: Diverticulitis TISSUE SUBMITTED: A ? Sigmoid colon biopsy, B ? Sigmoid polyp biopsy, C ? Rectosigmoid polyp MICROSCOPIC DIAGNOSIS A. Sigmoid colon, biopsy: No pathologic change. B. Sigmoid colon polyp, biopsy: Hyperplastic polyp. C. Rectosigmoid colon polyp, biopsy: Hyperplastic polyp. AM:henrique 03/13/2022 MICROSCOPIC DESCRIPTION Slides are reviewed. GROSS DESCRIPTION A - Received in fixative is one container labeled with the patient's name and designated sigmoid biopsy. The specimen consists of multiple irregular fragments of light la soft tissue that in aggregate measure 1 x 0.3 x 0.1 cm. The specimen is totally submitted in one cassette. B - Received in fixative is one container labeled with the patient's name and designated sigmoid polyp biopsy. The specimen consists of one irregular fragment of light la soft tissue that measures 0.3 x 0.3 x 0.1 cm. The specimen is totally submitted in one cassette. C - Received in fixative is one container labeled with the patient's name and designated rectosigmoid polyp. The specimen consists of a pink-red polyp measuring 1 x 0.8 x 0.5 cm. The presumed base is inked. The polyp is bisected and submitted entirely in one cassette. / RANJAN:henrique 03/12/2022 TC:3 CPT: 31919 x3
--- NOTE | 2022-03-11 14:15 | PCM.HP.BLA ---
History and Physical Date of Admission: 03/11/22 CARRIE OGLESBY, is a 56 F who presents to the office today for Initial consult. Carrie established with this clinic 01.23.22 with referral from PCP following [facility] ED presentation 10.29.21 where she presented with mucousy/watery diarrhea for multiple days with abdominal pain/cramping; typically in the RLQ. Biochemical workup and imaging performed and was discharged with Cipro and Flagyl and orders to f/u with PCP. PMH anxiety/depression; HTN; aortic valve insufficiency. Biochemical workup 10.29.21 CBC, CMP without pertinent abnormalities. LFT elevated AST 55/ALT 66/ Alk Phos 242; Albumin L3.1 CT abd/pel 10.29.21 with extensive bowel wall thickening in distal RS with extensive stranding of adjacent fat planes consistent with acute diverticulitis; thickening of proximal sigmoid and descending colon with diverticular disease; distended small bowel loops RLQ and mid abdomen, possible ileus secondary to irritation/inflammation; hiatal hernia Since being seen in the ED and finishing her antibiotics she has been doing fine. This is the first time she has ever had symptoms like this. BM typically run as normal with 1-2 BM a day without difficulty. ROS Const Constitutional: No fatigue, malaise, night sweats, weight change, sleep problems, abnormal sleep pattern or change in appetite ENT ENT: No difficulty swallowing, hoarseness or sore throat Cardio Cardiology: No chest pain at rest Gastro GI: No abdominal pain, belching, bloating, change in bowel habits, change in stool character, coffee ground emesis, constipation, cramping, diarrhea, heartburn, difficulty swallowing, feeling full early, excessive flatus, incontinent of stools, Vomiting blood/hematemesis, Blood in stool, loose stools, Black,tarry stools, nausea/dyspepsia, pain with swallowing, vomiting or other Musc Musculoskeletal: No joint pain Skin Skin: No yellowing of the eye or itchy eyes Neuro Neurology: No behavioral changes Psych Psychiatric: No abnormal sleep pattern, No anxiety, No behavioral changes, No change in appetite and No depression Endo Endocrine: No fatigue or weight change Aller/Imm Allergy/Immunologic: No itchy eyes Victorino/Lymp Hematologic/Lymphatic: No easy bleeding or easy bruising Exam Const General: cooperative and comfortable Nutritional Appearance: average body habitus and well nourished [facility] Head: normal to inspection Ears: hearing grossly normal bilaterally Nose: external nose normal Face and sinus: normal facial exam Mouth: oral mucosae normal Throat: posterior oropharynx normal Eyes General: appearance normal, both eyes and all related structures Neck Neck: normal visual inspection Chest Chest palpation & inspection: normal inspection of the chest and normal palpation of entire chest wall Resp Effort & Inspection: normal respiratory effort Auscultation: Bilateral: Clear to Auscultation Cardio Palpation: normal PMI Rate: regular rate Rhythm: regular rhythm GI Inspection: normal to inspection Auscultation: normal bowel sounds Percussion: normal to percussion Palpation: no hepatosplenomegaly Skin General: no rashes or lesions noted Neuro General: patient alert Extrem General: normal to inspection Psych Affect: normal affect Quality Reporting Tobacco Screening ([facility] 138) Smoking Status: Never smoker Assessment and Plan Assessment and Plan (1) Diverticulitis: ?Status:?Resolved ?Plan: First episode of acute diverticulitis her imaging did show a lot of lymphadenopathy that suspected was secondary to an acute infectious diverticulitis.? She completed antibiotic therapy and she is not having any abdominal pain.? She will need to? Undergo colonoscopy as she has never had a colonoscopy in the past.? She is several years overdue.? She will also need a a repeat CT scan. ? ? ? Orders: Orders Abdomen/Pelvis WITH Contrast Today K57.92 - Diverticulitis of intestine, part unspecified, without perforation or abscess without bleeding ? I have examined the patient and the H&P has been reviewed. There are no clinical changes since date of exam.
--- NOTE | 2022-03-11 15:03 | OP.COLON_ITS ---
Patient Name: Margot Chacko Procedure Date: 03/11/2022 2:21 PM Date of : 1965 Age: 56 Procedure: Colonoscopy Indications: Screening for colorectal malignant neoplasm Providers: Eleno Bedolla DO Referring MD: Eleno Bedolla DO Medicines: Monitored Anesthesia Care Patient Profile: This is a 56 year old female. Refer to note in patient chart for documentation of history and physical. Last Colonoscopy: several years ago. Complications: No immediate complications. Procedure: Pre-Anesthesia Assessment: - Prior to the procedure, a History and Physical was performed, and patient medications and allergies were reviewed. The patient is competent. The risks and benefits of the procedure and the sedation options and risks were discussed with the patient. All questions were answered and informed consent was obtained. Patient identification and proposed procedure were verified by the physician in the pre-procedure area. Mental Status Examination: alert and oriented. Airway Examination: normal oropharyngeal airway and neck mobility. Respiratory Examination: clear to auscultation. CV Examination: normal. Prophylactic Antibiotics: The patient does not require prophylactic antibiotics. Prior Anticoagulants: The patient has taken no previous anticoagulant or antiplatelet agents. ASA Grade Assessment: II - A patient with mild systemic disease. After reviewing the risks and benefits, the patient was deemed in satisfactory condition to undergo the procedure. The anesthesia plan was to use moderate sedation / analgesia (conscious sedation). Immediately prior to administration of medications, the patient was re-assessed for adequacy to receive sedatives. The heart rate, respiratory rate, oxygen saturations, blood pressure, adequacy of pulmonary ventilation, and response to care were monitored throughout the procedure. The physical status of the patient was re-assessed after the procedure. After I obtained informed consent, the scope was passed under direct vision. Throughout the procedure, the patient's blood pressure, pulse, and oxygen saturations were monitored continuously. The pediatric colonoscope was introduced through the anus and advanced to the cecum, identified by appendiceal orifice and ileocecal valve. The colonoscopy was performed without difficulty. The patient tolerated the procedure well. The quality of the bowel preparation was good. Scope In: 2:33:07 PM Scope Withdrawal Time 0 hours 15 minutes 36 seconds Scope Out: 2:54:25 PM Total Procedure Duration Time 0 hours 21 minutes 18 seconds Findings: The perianal and digital rectal examinations were normal. Many small and large-mouthed diverticula were found in the recto-sigmoid colon and sigmoid colon. Biopsies were taken with a cold forceps for histology. Verification of patient identification for the specimen was done. Estimated blood loss was minimal. Localized mild inflammation characterized by erosions, erythema and friability was found in the sigmoid colon. Biopsies were taken with a cold forceps for histology. Verification of patient identification for the specimen was done. Estimated blood loss was minimal. Two sessile polyps were found in the recto-sigmoid colon and sigmoid colon. The polyps were 1 to 2 mm in size. These polyps were removed with a hot snare. Resection and retrieval were complete. Verification of patient identification for the specimen was done. Estimated blood loss was minimal. Area was successfully injected with 5 mL [place] ink for tattooing. Estimated blood loss was minimal. Impression: - Diverticulosis in the recto-sigmoid colon and in the sigmoid colon. Biopsied. - Localized mild inflammation was found in the sigmoid colon secondary to colitis. Biopsied. - Two 1 to 2 mm polyps at the recto-sigmoid colon and in the sigmoid colon, removed with a hot snare. Resected and retrieved. Injected. Recommendation: - Discharge patient to home. - Resume previous diet. - Continue present medications. - Await pathology results. - Repeat colonoscopy in 5 years for surveillance. Procedure Code(s): --- Professional --- 86150, Colonoscopy, flexible; with removal of tumor(s), polyp(s), or other lesion(s) by snare technique 35787, 59, Colonoscopy, flexible; with biopsy, single or multiple 60290, Colonoscopy, flexible; with directed submucosal injection(s), any substance CPT copyright 2017 [employer]. All rights reserved. The codes documented in this report are preliminary and upon life insurance actuary review may be revised to meet current compliance requirements. Eleno Bedolla DO 03/11/2022 3:03:41 PM This report has been signed electronically. Number of Addenda: 0 Note Initiated On: 03/11/2022 2:21 PM
--- NOTE | 2022-03-11 15:04 | OP.CCLET_ITS ---
03/11/2022 Camila Baeza [address] [place] [address] Re : Colonoscopy procedure for Margot Chacko Dear Dr. Baeza This procedure was performed on Friday, March 11, 2022. My impressions and recommendations are as follows: Impressions : - Diverticulosis in the recto-sigmoid colon and in the sigmoid colon. Biopsied. - Localized mild inflammation was found in the sigmoid colon secondary to colitis. Biopsied. - Two 1 to 2 mm polyps at the recto-sigmoid colon and in the sigmoid colon, removed with a hot snare. Resected and retrieved. Injected. Recommendations : - Discharge patient to home. - Resume previous diet. - Continue present medications. - Await pathology results. - Repeat colonoscopy in 5 years for surveillance. My findings are described in the full procedure note, which is enclosed. If I can be of further assistance, please feel free to contact me at . Sincerely, Eleno Bedolla, 03/11/2022 3:03:41 PM This report has been signed electronically.
== END 2022-03-11 15:52 | disposition home or self-care (01) ==
LOC: EN 12:38 → AC 12:39
PROVIDERS: PCP Internal Medicine; Referring Provider Internal Medicine Gastroenterology; Visit Provider Internal Medicine Gastroenterology
PROC: 0DJD8ZZ Inspection of Lower Intestinal Tract, Via Natural or Artificial Opening Endoscopic (ICD-10-PCS; CPT 45378; principal; 2022-03-11 13:40)
DX: K57.30 Diverticulosis of large intestine without perforation or abscess without bleeding (principal); K63.89 Other specified diseases of intestine; K63.5 Polyp of colon; I10 Essential (primary) hypertension; Z79.899 Other long term (current) drug therapy
CPT/HCPCS: 45380; 45381; 45385; 88305; J7120; A4648; J2405

== ENCOUNTER 2023-01-17 10:55 | Emergency (ER) | payer OTHER, SELFPAY ==
[2023-01-17 10:56] VITALS: BP 155/74; PULSE 69; RESP 18; TEMP 35.8; O2SAT 98; BMI 31.0
--- NOTE | 2023-01-17 11:22 | EKG12_ITS ---
Test Reason : CHEST PAIN Blood Pressure : / mmHG Vent. Rate : 066 BPM Atrial Rate : 066 BPM P-R Int : 176 ms QRS Dur : 082 ms QT Int : 390 ms P-R-T Axes : 028 029 051 degrees QTc Int : 408 ms Normal sinus rhythm Normal ECG Confirmed by SOFÍA SWANSON, JONNY ([id number]), tape editor LOLI LYON ([id number]) on 01/26/2023 7:01:14 AM Referred By: MALA Confirmed By:TRINITY GORE MD
[2023-01-17 11:33] LABS: Absolute Lymphocyte Count 1.91 X10^3/uL (0.83-4.51); Absolute Neutrophil Count 9.7 X10^3/uL (2.0-7.7); Basophil# 0.08 X10^3/uL; Basophil% 0.6 % (0-1); Eosinophil# 0.29 X10^3/uL; Eosinophils% 2.3 % (0-5); Hematocrit 41.9 % (37-47); Hemoglobin 13.9 g/dL (12.0-15.0); Lymphocyte # 1.91 X10^3/ul (0.83-4.51); Lymphocyte % 15.2 % (19-41); Mean Corp Hgb Conc 33.2 g/dL (32-36); Mean Corpuscular Hgb 31.8 pg (27.0-32.0); Mean Corpuscular Volume 95.9 fL (81-99); Mean Platelet Vol. 10.1 fl (6.2-12.0); Monocyte# 0.62 X10^3/uL; Monocyte% 4.9 % (0-10); NRBC Flagged by Analyzer 0 % (0-5); Neutrophil # 9.66 X10^3/uL (2.7-7.7); Neutrophil % 76.7 % (47-70); Platelet Count 304 K/mm3 (150-450); RBC Distribution Width CV 12.9 % (11.6-14.6); RBC Distribution Width SD 45.4 fl (35.1-43.9); Red Blood Count 4.37 M/mm3 (4.2-5.4); White Blood Count 12.6 K/mm3 (4.4-11.0)
--- NOTE | 2023-01-17 11:33 | ED.VIS.CHEST ---
HPI <Dr. Cherrie Castillo, - Last Filed: 01/17/23 15:09> History of Present Illness Chief Complaint: Chest Pain <CHUY Adhikari - Last Filed: 01/17/23 15:03> Narrative Narrative: Patient is a 57-year-old female with history of anxiety, depression, hypertension. Patient does drink 2 to 3 glasses of wine daily. Patient states she was eating toast for breakfast this morning when she had a sudden onset of chest pressure that radiated around the left breast, she felt dizzy, had cold sweating, and took a shower. She states that she did feel extremely nauseous and had some numbness and tingling in her hands. Patient states she still has slight discomfort under her left breast. Patient denies any shortness of breath, denies any recent travel, recent surgery, denies any history of blood clots in the legs or lungs. PFSH <Dr. Cherrie Castillo DO - Last Filed: 01/17/23 15:09> PFS Medical History Abdominal pain Anxiety and depression Cardiology follow-up encounter Chest pain DDD (degenerative disc disease) VENTURA (dyspnea on exertion) Essential hypertension Family history of heart disease Former smoker History of diverticulitis History of echocardiogram History of stress test Migraine headache Nonrheumatic aortic (valve) insufficiency Nonrheumatic aortic (valve) insufficiency Nonrheumatic aortic valve disorder Umu-menopausal Wears glasses Home Medications multivitamin 1 tab PO QDAY 03/24/17 [History Last Taken Unknown] hydrochlorothiazide 25 mg tablet 25 mg PO DAILY 03/29/18 [History Last Taken Unknown] atenolol 25 mg tablet 25 mg PO DAILY 06/27/21 [History Last Taken Unknown] calcium citrate 200 mg (950 mg) tablet 200 mg PO DAILY 12/25/22 [History Last Taken Unknown] Allergy/AdvReac Type Severity Reaction Status Date / Time No Known Allergies Allergy Verified 01/17/23 11:04 Family History Mother Heart disease Hypertension Father Heart disease Diabetes Brother Heart disease Myocardial infarction, Onset Age: 58 Surgical History Hx of foot surgery uterine ablation Social History Smoking Status: Never smoker alcohol intake: current substance use type: does not use ROS <CHUY Adhikari - Last Filed: 01/17/23 15:03> ROS ED ROS Narrative Constitutional: Negative for fever, chills, weight loss, weakness. Positive for diaphoresis Eyes: Negative for vision loss, vision change, double vision ENT: Negative for any sore throat, ear pain, congestion Cardiovascular: Negative for any palpitations. Positive for chest pain, chest tightness around the left breast Respiratory: Negative for any cough, sputum production, hemoptysis, dyspnea, dyspnea on exertion, orthopnea Gastrointestinal: Negative for any abdominal pain, vomiting, diarrhea, constipation, blood in stool, blood in vomit. Positive for nausea : Negative for any urinary frequency, dysuria, retention, blood in urine Muscle skeletal: Negative for any muscle joint pain, stiffness, myalgias, arthralgias, neck pain, back pain Neurological: Negative for any headache, syncope, numbness or tingling, dizziness Skin: Negative for any rashes, lumps, itching, abrasions, lacerations Psychiatric: Negative for any depression, anxiety, stress, suicidal ideation, homicidal ideation Hematologic: Negative for any easy bruising, excessive bruising, easy bleeding Allergies: Negative for any eczema, hives, rash EXAM <Dr. Cherrie Castillo DO - Last Filed: 01/17/23 15:09> Physical Exam Const Vital Signs: 01/17/23 10:56 01/17/23 11:06 01/17/23 12:11 Temperature 96.4 F L Temperature Source Temporal Pulse Rate 69 Respiratory Rate 18 Respiratory Effort Normal Non-Labored Respiratory Pattern Normal Blood Pressure 155/74 H Blood Pressure Mean 101 Pulse Ox 98 Oxygen Delivery Method Room Air Room Air 01/17/23 15:04 Temperature Temperature Source Pulse Rate 57 L Respiratory Rate 18 Respiratory Effort Respiratory Pattern Blood Pressure 142/66 H Blood Pressure Mean 91 Pulse Ox 96 Oxygen Delivery Method Room Air <CHUY Adhikari - Last Filed: 01/17/23 15:03> Physical Exam Narrative Exam Narrative: Vital signs reviewed. Patient appears generally well, patient appears nontoxic. HEET: Head normocephalic atraumatic, TMs clear bilaterally. Posterior pharynx is clear, moist mucous membranes. Nares clear bilaterally. Neck: Supple with no lymphadenopathy or tenderness. No signs of meningismus, negative jolt sign. Cardiac: Regular rate and rhythm no murmurs gallops or rubs, equal peripheral pulses bilaterally. Respiratory: Lungs clear to auscultation bilaterally. No chest tenderness. Abdomen: Soft, nontender, nondistended. No abdominal bruit or pulsatile masses. No hepatosplenomegaly Extremities: No peripheral edema, no signs of gross trauma or deformity. Active full range of motion of all extremities. Neuro: Cranial nerves II through XII intact, no focal neurological deficits. Skin: Clean dry and intact with no rash, purpura, petechiae, vesicles or pustules. Backs/flank: No CVA tenderness, no midline spinal tenderness, no deformity. Psych: Normal mood and affect. No SI, HI or acute psychosis. Const Vital Signs: 01/17/23 10:56 01/17/23 11:06 01/17/23 12:11 Temperature 96.4 F L Temperature Source Temporal Pulse Rate 69 Respiratory Rate 18 Respiratory Effort Normal Non-Labored Respiratory Pattern Normal Blood Pressure 155/74 H Blood Pressure Mean 101 Pulse Ox 98 Oxygen Delivery Method Room Air Room Air 01/17/23 15:04 Temperature Temperature Source Pulse Rate 57 L Respiratory Rate 18 Respiratory Effort Respiratory Pattern Blood Pressure 142/66 H Blood Pressure Mean 91 Pulse Ox 96 Oxygen Delivery Method Room Air <Dr. Cherrie Castillo, DO - Last Filed: 01/17/23 15:09> Heart Score History: Slightly/Non-Suspicious ECG: Normal Age: >45 - <65 years Risk Factors: 1 or 2 Risk Factors Troponin: </= Normal Limit Score: 2 MDM <Dr. Cherrie Castillo, DO - Last Filed: 01/17/23 15:09> [facility] Narrative Medical decision making narrative: I have personally performed a face to face assessment of the patient and have reviewed the SUSANA Note. I performed a substantive portion of the visit including all aspects of the following. My witt findings include: History is [patient presents with chest pain that started this morning around 9:30 AM. Patient states that she was eating when she started feeling retrosternal chest discomfort and heaviness that radiated underneath her left breast to her back. She felt sweaty with it. She got nauseated but did not vomit. Currently her discomfort is improved and rates it a 3 out of 10. Patient has significant family history of heart disease and her mom had heart attacks in her 30s and required bypass surgery. Patient has history of hypertension. Patient herself is never been diagnosed with heart disease. Patient denies recent travel or surgery. No history of PE or DVT.] Exam is [HEENT-PERRLA, EOMI. Cranial nerves II through XII grossly intact. TMs clear. Mucous membranes moist. No adenopathy. Cardiovascular-regular rate and rhythm without murmur or ectopy Lungs-clear to auscultation, chest wall stable without crepitus or subcu emphysema Abdomen-normoactive bowel sounds, soft, nontender, no rebound or rigidity, no peritoneal signs. Extremities-intact ?4, normal range of motion, normal pulses, atraumatic] Medical Decison Making [patient presents with sudden onset chest pain. In the differential would be PE versus GI etiology versus acute coronary syndrome. EKG obtained arrival showed a sinus rhythm with a rate of 66 bpm with no acute ST segment changes. Patient will receive aspirin and sublingual nitro. She be placed on compliance monitor. Lab work will be obtained.] Heart score is a 2. I feel she is low risk for acute coronary syndrome. Lab work-up unremarkable. Patient initial troponin normal as well as delta troponin. Other additions or changes: [None] Lab Data Labs: Laboratory Results - last 24 hr 01/17/23 01/17/23 11:05 14:25 WBC 12.6 H RBC 4.37 Hgb 13.9 Hct 41.9 MCV 95.9 MCH 31.8 MCHC 33.2 RDW Std Deviation 45.4 H RDW Coeff of Bright 12.9 Plt Count 304 MPV 10.1 Immature Gran % (Auto) 0.300 Neut % (Auto) 76.7 H Lymph % (Auto) 15.2 L [place] % (Auto) 4.9 Eos % (Auto) 2.3 Baso % (Auto) 0.6 Absolute Neuts (auto) 9.7 H Absolute Lymphs (auto) 1.91 Nucleated RBC % 0 Sodium 139 Potassium 3.8 Chloride 105 Carbon Dioxide 27.0 Anion Gap 7 BUN 16 Creatinine 0.85 Estim Creat Clear Calc 59.68 Est GFR (MDRD) Af Amer 88 Est GFR (MDRD) Non-Af 73 BUN/Creatinine Ratio 18.8 Glucose 136 H Calcium 9.1 Total Bilirubin 0.30 AST 19 ALT 38 Alkaline Phosphatase 117 Troponin I High Sens 4 4 Total Protein 7.2 Albumin 3.8 Globulin 3.4 Albumin/Globulin Ratio 1.1 Lipase 79 H TSH 2.87 Radiography Diagnostic Testing: Clinical Impression(s) from Imaging Studies Chest X-Ray 01/17/23 11:55 IMPRESSION: No radiographic evidence of acute cardiopulmonary disease. Electronically Signed: Shaw Gonzalez MD at 12:42 EDT , EKG Initial EKG: Attestation: I personally reviewed and interpreted this EKG as follows: Comments: Sinus rhythm with a rate of 66 bpm with no acute ST segment changes <CHUY Adhikari - Last Filed: 01/17/23 15:03> [facility] Lab Data Labs: Laboratory Results - last 24 hr 01/17/23 01/17/23 11:05 14:25 WBC 12.6 H RBC 4.37 Hgb 13.9 Hct 41.9 MCV 95.9 MCH 31.8 MCHC 33.2 RDW Std Deviation 45.4 H RDW Coeff of Bright 12.9 Plt Count 304 MPV 10.1 Immature Gran % (Auto) 0.300 Neut % (Auto) 76.7 H Lymph % (Auto) 15.2 L [place] % (Auto) 4.9 Eos % (Auto) 2.3 Baso % (Auto) 0.6 Absolute Neuts (auto) 9.7 H Absolute Lymphs (auto) 1.91 Nucleated RBC % 0 Sodium 139 Potassium 3.8 Chloride 105 Carbon Dioxide 27.0 Anion Gap 7 BUN 16 Creatinine 0.85 Estim Creat Clear Calc 59.68 Est GFR (MDRD) Af Amer 88 Est GFR (MDRD) Non-Af 73 BUN/Creatinine Ratio 18.8 Glucose 136 H Calcium 9.1 Total Bilirubin 0.30 AST 19 ALT 38 Alkaline Phosphatase 117 Troponin I High Sens 4 4 Total Protein 7.2 Albumin 3.8 Globulin 3.4 Albumin/Globulin Ratio 1.1 Lipase 79 H TSH 2.87 Radiography Diagnostic Testing: Clinical Impression(s) from Imaging Studies Chest X-Ray 01/17/23 11:55 IMPRESSION: No radiographic evidence of acute cardiopulmonary disease. Electronically Signed: Shaw Gonzalez MD at 12:42 EDT , Treatment and Re-Evaluation :: Patient appears generally well, patient appears nontoxic, vital signs are stable. Presenting to the emergency department chest pressure, nausea, sweating while eating breakfast today. Differential diagnosis includes ACS, [place], pneumonia, vasovagal response. Patient will receive a full cardiac work-up including 2 troponins. Secondary the patient's drinking history, labs will be done such as CMP, lipase. Two-view chest x-ray will be obtained, this will be interpreted by the ER physician. Patient received IV fluids, aspirin and 1 nitro secondary to left chest pain. Patient CBC shows a slight leukocytosis white blood count of 12.6, patient's chemistries were unremarkable, lipase was slightly elevated 79 however in October 2021 it was 217. I have low suspicion for any acute pancreatitis. Patient's TSH is 2.87 which is within normal limits. Initial troponin was 4 which is negative. EKG was unremarkable. At this time there is no evidence of any ACS or [place], 2 view chest x-ray to read by ER physician was negative. Patient will receive a delta troponin. Repeat troponin was negative. Patient has no chest pain and is asymptomatic. Patient stable for discharge, she will follow-up outpatient Discharge Plan Triage Chief Complaint: Chest Pain ED Midlevel Provider: Devan Abreu ED Provider: Cherrie Castillo Dx/Rx/DC Orders Clinical Impression: Vaso-vagal reaction, Chest pain Instructions: ED Chest Pain, Uncertain Cause, ED Fainting, Vagal Reaction Prescriptions: No Action multivitamin tablet 1 tab PO QDAY hydrochlorothiazide 25 mg tablet 25 mg PO DAILY atenolol 25 mg tablet 25 mg PO DAILY calcium citrate 200 mg (950 mg) tablet 200 mg PO DAILY Primary Care Provider: Camila Baeza Referrals: Camila Baeza MD [Primary Care Provider] - Activity Restrictions/Additional Instructions: You had a negative cardiac work-up today. Please follow-up outpatient. Return for any worsening symptoms Disposition Disposition: Home, Self Care
--- NOTE | 2023-01-17 11:55 | RAD_ITS ---
INDICATION: chest pain EXAMINATION/TECHNIQUE: X-RAY - XR Chest 2 Views COMPARISON: Prior study dated: 02/11/2017. FINDINGS: LINES/DEVICES: None. LUNGS: No consolidation, edema or effusion. No pneumothorax. MEDIASTINUM AND CARDIOVASCULAR STRUCTURES: Cardiac silhouette not enlarged. Central airways and mediastinal contour are unremarkable. BONES AND SOFT TISSUES: Unremarkable. RAD/Chest PA and Lateral IMPRESSION: No radiographic evidence of acute cardiopulmonary disease. Electronically Signed: Shaw Gonzalez MD at 12:42 EDT ,
[2023-01-17] MEDS: 0.9% Normal Saline (1000mL) 1,000 ML 1000 ML IV (12:09)
[2023-01-17] MEDS: Aspirin 81 MG TAB.CHEW 324 MG PO (12:09)
[2023-01-17 12:26] LABS: ALB/GLOB Ratio 1.1 RATIO (0.9-2.4); AST(SGOT) 19 U/L (15-37); Alanine Aminotransfer ALT/SGPT 38 U/L (13-56); Albumin, Serum 3.8 g/dL (3.2-5.0); Alkaline Phosphatase 117 U/L (45-117); Anion Gap 7 (5-15); BUN 16 mg/dL (7-18); BUN/Creat Ratio 18.8 RATIO (10-20); Calcium,Total 9.1 mg/dL (8.5-10.1); Chloride 105 mmol/L (98-107); Creatinine, Serum 0.85 mg/dL (0.55-1.02); EST Glomerular Filtration Rate 73 mL/min (>60); Est Glom Filt Rate - Afr Amer 88 mL/min (>60); Estimated Creatinine Clearance 59.68 ml/min; Globulin 3.4 g/dL (2.2-4.2); Glucose 136 mg/dL (74-106); Lipase 79 U/L (13-75); Potassium 3.8 mmol/L (3.5-5.1); Protein, Total 7.2 g/dL (6.4-8.2); Sodium Level 139 mmol/L (136-145); Thyroid Stim Hormone (TSH) 2.87 uIU/mL (0.358-3.74); Troponin-I HS (w/2H Reflex) 4 pg/mL (3.0-54.0)
[2023-01-17 13:29] LABS: Reflex Troponin-HS? (from REC) Y
[2023-01-17 14:49] LABS: Troponin-I HS 4 pg/mL (3.0-54.0)
[2023-01-17 15:04] VITALS: BP 142/66; PULSE 57; RESP 18; O2SAT 96
[2023-01-17 15:22] VITALS: BP 145/76; PULSE 81; RESP 14; O2SAT 97
== END 2023-01-17 15:23 | disposition home or self-care (01) ==
PROVIDERS: Nurse Practitioner; Emergency Provider Emergency Medicine; PCP Internal Medicine; Visit Provider Emergency Medicine
DX: R07.9 Chest pain, unspecified (principal); I10 Essential (primary) hypertension; F41.9 Anxiety disorder, unspecified; R11.0 Nausea; F32.A Depression, unspecified; R55 Syncope and collapse
CPT/HCPCS: 71046; 80053; 83690; 84443; 84484; 85025; 93005; 96360; 99284; J7030; A4216

== ENCOUNTER → 2024-03-11 | Outpatient (CLI) | payer OTHER, SELFPAY ==
--- NOTE | 2024-03-11 12:40 | ECHOD_ITS ---
Reason For Study: BICUSPID AORTIC VALVE Procedure This was a 2D Doppler, Color Flow transthoracic echocardiogram. The study was technically difficult. Exam performed in department. Left Ventricle Normal LV size. The left ventricular ejection fraction is 65 %. No regional wall motion abnormalities noted. Right Ventricle Normal RV size. Normal systolic function. Atria Normal left atrium. Normal right atrium. Mitral Valve Normal mitral valve. Tricuspid Valve Normal tricuspid valve. Aortic Valve Bicuspid aortic valve. There is no aortic stenosis. Mild (1+) eccentric aortic valve insufficiency. Pulmonic Valve Normal pulmonic valve. Great Vessels Normal aortic root. The pulmonary artery is normal size. Normal inferior vena cava. Pericardium/Pleural No pericardial effusion. MMode/2D Measurements & Calculations LVIDd: 4.3 cm IVSd: 1.3 cm LVOT diam: 2.3 cm LVIDs: 2.7 cm LVPWd: 1.0 cm LVOT area: 4.1 cm2 RVDd: 3.1 cm FS: 36.2 % asc Aorta Diam: 3.7 cm LAV(MOD-bp): 40.7 ml LVAd ap4: 21.8 cm2 LAV(MOD-bp) Indexed: 22.4 ml/m2 LVLd ap4: 7.3 cm LAV(MOD-sp2): 46.8 ml EDV(MOD-sp4): 53.0 ml LAV(MOD-sp4): 34.5 ml EDV(sp4-el): 55.0 ml LVAs ap4: 11.9 cm2 LVLs ap4: 6.4 cm ESV(MOD-sp4): 19.1 ml ESV(sp4-el): 18.8 ml EF(MOD-sp4): 63.9 % EF(sp4-el): 65.8 % LVAd ap2: 21.9 cm2 SV(MOD-sp4): 33.9 ml SV(MOD-sp2): 35.0 ml LVLd ap2: 7.6 cm SI(MOD-sp4): 18.6 ml/m2 SI(MOD-sp2): 19.2 ml/m2 EDV(MOD-sp2): 53.6 ml EDV(sp2-el): 53.7 ml LVAs ap2: 11.6 cm2 LVLs ap2: 6.4 cm ESV(MOD-sp2): 18.6 ml ESV(sp2-el): 17.8 ml EF(MOD-sp2): 65.3 % SV(sp4-el): 36.2 ml Ao sinus diam: 3.[address] Junction: 3.3 cm LA dimension(2D): 3.1 cm LA A4 area: 14.8 cm2 RA A4 area: 11.7 cm2 TAPSE: 1.9 cm Time Measurements MV dec time: 0.21 sec Doppler Measurements & Calculations MV E max [place]: 80.7 cm/sec Lat Peak E' [place]: 11.3 cm/sec Med Peak E' [place]: 6.9 cm/sec MV A max [place]: 62.2 cm/sec E/E' lat: 7.1 E/E' med: 11.6 MV E/A: 1.3 MV dec slope: 379.3 cm/sec2 Ao V2 max: 182.8 cm/sec AI max [place]: 283.9 cm/sec Ao max P.4 mmHg AI max P.2 mmHg Ao V2 mean: 131.9 cm/sec AI dec slope: 172.3 cm/sec2 Ao mean P.5 mmHg AI P1/2t: 482.6 msec Ao V2 VTI: 42.5 cm AV (velocity ratio): 0.71 SAMUEL(I,D): 2.9 cm2 SAMUEL(V,D): 2.5 cm2 LV V1 max: 113.5 cm/sec SV(LVOT): 122.4 ml PA V2 max: 55.1 cm/sec LV V1 max P.2 mmHg LV V1 mean P.5 mmHg LV V1 mean: 73.4 cm/sec LV V1 VTI: 30.2 cm ECHO/Echo Complete Interpretation Summary Normal LV size. Bicuspid aortic valve. Mild (1+) eccentric aortic valve insufficiency. The left ventricular ejection fraction is 65 %. Ordering Physician: Joaquin Domingo Referring Physician: Camila Baeza M.D. Performed By: Hannah Combs RDCS
== END | disposition home or self-care (01) ==
LOC: CVS 12:40
PROVIDERS: PCP Internal Medicine; Referring Provider Internal Medicine Cardiovascular Disease; Visit Provider Internal Medicine Cardiovascular Disease
DX: R01.1 Cardiac murmur, unspecified (principal)
CPT/HCPCS: 93306

== ENCOUNTER → 2024-04-20 | Outpatient (CLI) | payer OTHER, SELFPAY ==
--- NOTE | 2024-04-20 17:00 | RAD_ITS ---
EXAM: XR Lumbosacral Spine, 4 or 5 Views CLINICAL INDICATION: TECHNIQUE: Frontal, lateral and bilateral oblique views of the lumbar spine. COMPARISON: No relevant prior studies available. FINDINGS: VERTEBRAE: Anterior spondylolisthesis of L5 over S1 by 17 mm. Possible pars defect. Further evaluation with CT or MRI is recommended. No acute fracture. SACRUM/COCCYX: Unremarkable as visualized. No acute fracture. DISC SPACES: No acute findings. No significant narrowing. SOFT TISSUES: Unremarkable. RAD/L/S Spine Min 4 Views IMPRESSION: Anterior spondylolisthesis of L5 over S1 by 17 mm. Possible pars defect. Furt her evaluation with CT or MRI is recommended. Reading Location: [email or web address]
== END | disposition home or self-care (01) ==
LOC: RAD 16:52
PROVIDERS: PCP Internal Medicine; Referring Provider Chiropractor; Visit Provider Chiropractor
DX: S33.5XXA Sprain of ligaments of lumbar spine, initial encounter (principal); X58.XXXA Exposure to other specified factors, initial encounter
CPT/HCPCS: 72110